=== PATIENT | female | born 1940 | race Caucasian/White ===

== ENCOUNTER 2023-12-26 06:44 | Outpatient (CLI) | payer MEDICARE, SELFPAY ==
[2023-12-13 14:31] VITALS: BMI 26.6
--- NOTE | 2023-12-13 14:43 | PC.NURSE ---
Pre Radiology instructions Report to the outpatient sasha hendricks on date _12/26/23____ at time __7:00AM for procedure Time: __9:00AM__ YOU MAY BE MONITORED AT HOSPITAL FOR UP TO 4 HOURS AFTER YOUR PROCEDURE. A visitor will be allowed to accompany the patient into the hospital. You and your visitor will be asked to self-screen and do not enter if you have any COVID symptoms. A mask is OPTIONAL within the hospital. Patients are to have no food or drink 6 hours prior to procedure time Driving will be restricted after the procedure, you must have a person to drive you home. Labs will be drawn in preop area and once reviewed, you will be taken to radiology area for procedure. When the procedure is completed, you will be taken to outpatient where you will be monitored for several hours. You may have one visitor in this area. Other than holding anti-coagulants, patient may take other medication(s) as scheduled. Prior to your appointment date patients are instructed to hold anti-coagulants after discussing with ordering provider to stop. If unable to discontinue anti-coagulants please notify radiologist. ? No aspirin or warfarin (Coumadin) for 7 days prior to the procedure. ? No clopidogrel (Plavix), ticagrelor (Brilinta), prasugrel (Effient) or dabigatran (Pradaxa) for 5 days prior to the procedure. ? No rivaroxaban (Xarelto), apixaban (Eliquis), dipyridamole (Aggrenox or Persantine) or cilostazol (Pletal) for 2 days prior to the procedure. Medications to discontinue per physician: __NONE Date to take last dose: Please leave all valuables, including medications, at home the day of procedure. The hospital will not accept responsibility for valuables. Wear comfortable, loose fitting clothing.? Follow any additional instructions given to you from ordering provider. Telephone instructions given to ____PATIENT and asked if any additional questions and then verbalized understanding. Patient advised to call scheduling provider office or registration scheduling [phone] if any additional questions.
--- NOTE | ~2023-12-26 | XR_ITS ---
EXAMINATION: 1. CT cervical spine w con 2. CT thoracic lumbar w con 3. [id number] DATE: 12/26/2023 09:12 INDICATION: Cervical, thoracic, and lumbar spondylosis. TECHNIQUE: The procedure including the risks, benefits, and alternatives was discussed with the patie nt. Risks discussed included spinal headache, bleeding, and infection. The patient understood the ris ks and agreed to proceed. A timeout was performed to verify the patient's name, date of , and procedure to be performed. The skin overlying the L3-L4 level was prepped and draped in usual steri le fashion. Subcutaneous 1% lidocaine was used for local anesthesia. A 22 gauge spinal needle was a dvanced under fluoroscopic guidance. 10 mL Omnipaque 300 was injected. The needle was removed and the entry site was cleaned and dressed. There were no immediate complications. Fluoroscopy exposure ladonna e was 0.4 minutes. The total number of images was 12. CT of the cervical, thoracic, and lumbar spine was performed without intravenous contrast. Automated exposure control and iterative reconstruction t echnique were employed. The dose length product was 831 mGy-cm. COMPARISON: None. FINDINGS: CERVICAL, THORACIC, AND LUMBAR MYELOGRAM: There is indentation of the thecal sac at multiple levels that will be further described on the postm yelogram CT. POST-MYELOGRAM CT CERVICAL SPINE: There is mild scarring at the lung apices. There is 9 degrees levocurvature of cervical spine. There is kyphosis of cervical spine. There is 2 mm anterolisthesis of C5 on C6 and 2 mm retrolisthesis of C 6 on C7. There is mildly decreased disc height at C5-C6 and severely decreased disc height at C6-C7. The following disc levels are specifically discussed: C2-C3: There is no uncovertebral joint osteoarthritis. There is mild bilateral facet joint osteoarthr itis. There is no neural foraminal stenosis. There is no central canal stenosis. C3-C4: There is mild bilateral uncovertebral joint osteoarthritis. There is severe right and moderate left facet joint osteoarthritis. There is mild right neural foraminal stenosis. There is mild centra l canal stenosis. C4-C5: There is a central extrusion. There is no uncovertebral joint osteoarthritis. There is severe bilateral facet joint osteoarthritis. There is mild left neural foraminal stenosis. There is mild ashley tral canal stenosis. C5-C6: There is mild right uncovertebral joint osteoarthritis. There is severe right facet joint oste oarthritis. There is mild right neural foraminal stenosis. There is mild central canal stenosis. C6-C7: There is a central extrusion. There is severe bilateral uncovertebral joint osteoarthritis. Th ere is severe right and moderate left facet joint osteoarthritis. There is mild right and moderate le ft neural foraminal stenosis. There is mild central canal stenosis. C7-T1: There is mild bilateral uncovertebral joint osteoarthritis. There is severe right and mild lef t facet joint osteoarthritis. There is mild right neural foraminal stenosis. There is no central matheus l stenosis. POST-MYELOGRAM CT THORACIC SPINE: There is a small sliding hiatal hernia. There is 5 degrees dextrocurvature of thoracic spine. Vertebr al body heights are normal. There is mildly decreased disc height at T6-T7, severely decreased disc h eight at T7-T8, and mildly decreased disc height at T8-T9 and T11-T12. At T6-T7, there is a central e xtrusion with mild central canal stenosis. At T7-T8, there is a central extrusion with mild central c anal stenosis. At T11-T12, the disc is bulging with mild central canal stenosis. There is multilevel facet joint osteoarthritis, severe bilaterally at T1-T2 and T2-T3, severe on the left at T7-T8, and s evere bilaterally at T10-T11. On the right, there is mild neural foraminal stenosis at T2-T3. On the left, there is mild neural foraminal stenosis at T2-T3, T7-T8, and T10-T11. The spinal cord morpholog
[2023-12-26 07:30] VITALS: BP 148/68; PULSE 94; RESP 14; TEMP 36.2; O2SAT 98
[2023-12-26 07:33] LABS: Basophils Percent Auto 0.3 % (0.2-1.2); Hematocrit 43.1 % (37.0-47.0); Hemoglobin 14.4 g/dL (12.0-15.0); Immature Granulocyte Absolute 0.02 K/mm3 (0.00-0.031); Immature Granulocyte Percent A 0.5 % (0-0.5); Lymphocytes Percent Auto 23.1 % (18.3-44.2); Mean Corpuscular HGB Conc 33.4 g/dl (32-36); Mean Corpuscular Hemoglobin 31.8 pg (26-34); Mean Corpuscular Volume 95.1 fl (80-100); Mean Platelet Volume 10.1 fl (7.4-10.4); Monocytes Absolute Auto 0.1 K/mm3 (0.1-0.6); Monocytes Percent Auto 2.3 % (2.6-8.5); Neutrophils Absolute Auto 2.9 K/mm3 (1.3-6.7); Neutrophils Percent Auto 73.8 % (45.5-73.1); Platelet Count Result 278 k/mm3 (150-375); Red Blood Count 4.53 M/mm3 (4.2-5.4); Red Cell Distribution Width 12.3 % (11.5-14.5); White Blood Count 3.9 K/mm3 (4.5-10.0)
[2023-12-26 07:41] LABS: Prothrombin Time 13.1 Seconds (11.1-14.7)
[2023-12-26 09:10] VITALS: BP 134/69; PULSE 107; RESP 17; O2SAT 100
[2023-12-26 09:40] VITALS: BP 121/58; PULSE 98; RESP 17; O2SAT 100
[2023-12-26 10:10] VITALS: BP 138/77; PULSE 100; RESP 16
[2023-12-26 10:37] VITALS: BP 126/74; PULSE 98; RESP 16
[2023-12-26 11:00] VITALS: BP 138/75; PULSE 98; RESP 18
== END 2023-12-26 11:00 | disposition home or self-care (01) ==
PROVIDERS: Radiology Diagnostic Radiology; PCP Internal Medicine; Visit Provider Radiology Diagnostic Radiology
DX: M47.892 Other spondylosis, cervical region (principal); M47.894 Other spondylosis, thoracic region; M47.896 Other spondylosis, lumbar region
CPT/HCPCS: 36415; 62305; 72126; 72129; 72132; 85025; 85610; Q9967